=== PATIENT | female | born 1955 | race Caucasian/White ===

== ENCOUNTER 2017-09-10 19:17 | Emergency (ER) | payer OTHER ==
[2017-09-10 20:59] LABS: Urine Blood 1+ (NEG); Urine Glucose NEGATIVE (NEG); Urine Protein 1+ (NEG); Urine Specific Gravity 1.025 (1.005-1.030); Urine pH 5.5 (5.0-7.0)
[2017-09-10] MEDS ORDERED: CYCLOBENZAPRINE 10 MG TAB ONE (21:03)
[2017-09-10] MEDS ORDERED: IBUPROFEN 400 MG TAB ONE (21:03)
--- NOTE | 2017-09-10 21:32 | RAD REPORT ---
EXAM DESCRIPTION: RAD - Hand Right 3 View - 09/10/2017 9:21 pm CLINICAL HISTORY: Right hand pain status post injury FINDINGS: No fracture or dislocation is seen. 7 millimeter lucency is present within the metacarpal neck. It is uncertain if this is a true lesion or superimposition of trabecula in osteoporotic bones. A followup x-ray in 3 months of the fifth fin debbie is recommended for re-evaluation
[2017-09-10 21:39] LABS: Absolute Lymphocytes (CBC) 3.4 K/uL (0.7-4.9); Absolute Monocytes 0.6 K/uL (0.1-1.3); Absolute Neutrophil 6.2 K/uL (1.8-8.0); Basophils % 0.5 % (0-1.3); Eosinophils % 2.1 % (0-4.4); Hematocrit 39.8 % (36.0-45.0); Lymphocytes % 32.5 % (15.3-44.8); MCV 83.6 fL (80-100); MPV 9.2 fL (7.6-11.3); Monocytes % 5.7 % (3.3-12.3); RBC Red Blood Cell Count 4.76 M/uL (3.86-4.86)
[2017-09-10 21:48] LABS: Potassium 3.7 mEq/L (3.6-5.0)
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
== END 2017-09-10 23:45 | disposition home or self-care (01) ==
LOC: ER 19:17
DX: M62.830 Muscle spasm of back (principal); N39.0 Urinary tract infection, site not specified; M79.644 Pain in right finger(s); V49.49XA Driver injured in collision with other motor vehicles in traffic accident, initial encounter
CPT/HCPCS: 36415; 70450; 71260; 72125; 74177; 80048; 81003; 85025; 99285; Q9967

== ENCOUNTER 2020-10-19 10:57 | Emergency (ER) | payer OTHER ==
--- NOTE | 2020-10-19 12:08 | RAD REPORT ---
EXAM DESCRIPTION: RAD - Chest Single View - 10/19/2020 11:59 am CLINICAL HISTORY: COUGH, hypotension, weakness COMPARISON: None TECHNIQUE: AP portable chest image was obtained 10/19/2020 11:59 am . FINDINGS: Lung volumes are low. No acute lung parenchymal process. Left-sided pericardial fat presen t. Hilar granulomatous type calcifications are seen. Heart and vasculature are normal. No measurable pleural effusion and no pneumothorax. No acute bony abnormality seen. No acute aortic findings suspec ayaan. IMPRESSION: No acute cardiopulmonary process.
[2020-10-19 12:24] LABS: Basophils % 0.4 % (0-1.3); Hematocrit 30.2 % (36.0-45.0); Lymphocytes % 18.5 % (15.3-44.8); MPV 8.6 fL (7.6-11.3); Protime INR 1.4; RBC Red Blood Cell Count 3.76 M/uL (3.86-4.86)
[2020-10-19 12:49] LABS: ALT/SGPT 279 U/L (12-78); Albumin 1.7 g/dL (3.4-5.0); Alkaline Phosphatase 155 U/L (45-117); BUN Blood Urea Nitrogen 12 mg/dL (7-18); Bicarbonate 30 mmol/L (21-32); Bilirubin Direct 0.1 mg/dL (0-0.2); Bilirubin Total 0.4 mg/dL (0.2-1.0); Glucose Level 108 mg/dL (74-106); Lipase 51 U/L (73-393); Magnesium 2.2 mg/dL (1.8-2.4); NT PRO-BNP 205 pg/mL (<125); Potassium 3.1 mmol/L (3.5-5.1); Protein, Total 5.7 g/dL (6.4-8.2); Sodium Level 127 mmol/L (136-145); Troponin (Emerg Dept Use Only) < 0.02 ng/mL (0.0-0.045)
[2020-10-19 12:50] LABS: AST/SGOT 397 U/L (15-37)
[2020-10-19] MEDS ORDERED: FAMOTIDINE 20 MG/2 ML VIAL IV ONE (12:59)
[2020-10-19] MEDS ORDERED: NA CHLORIDE 0.9% 500 ML ONE (12:59)
[2020-10-19] MEDS ORDERED: CIPROFLOXACIN 400mg IV 400 MG/200 ML BAG IV ONE (12:59)
[2020-10-19] MEDS ORDERED: NA CHLORIDE 0.9% 1,000 ML ONE ×2 (13:00→14:16)
[2020-10-19] MEDS ORDERED: METRONIDAZOLE 500mg IVPB 500 MG/100 ML BAG IV ONE (13:00)
[2020-10-19 13:02] LABS: Anisocytosis 1+; Blood Morphology Comment NOTED (NOT SEEN); Platelet Estimate DECR
--- NOTE | 2020-10-19 13:06 | RAD REPORT ---
EXAM DESCRIPTION: CT - Abdomen Pelvis W Contrast - 10/19/2020 12:12 pm CLINICAL HISTORY: Abdominal distention;Abd pain COMPARISON: Head C Spine Cap W Con dated 09/10/2017 TECHNIQUE: Biphasic, helical CT imaging of the abdomen and pelvis was performed following 100 ml non -ionic IV contrast. No oral contrast. All CT scans are performed using dose optimization technique as appropriate and may include automated exposure control or mA/KV adjustment according to patient size. FINDINGS: No suspicious findings in the lung bases. Liver shows fatty infiltration that has progressed since 2018. Subtle nodularity of the liver capsule seen. Density of contrast in the main portal vein on venous phase imaging is less than expected. SMV and splenic vein appear to have normal density of contrast. The diminished density in the portal vei n may be an artifact of image acquisition timing. Thrombus within the portal vein is not entirely exc luded. There is a small 7 mm focus of diminished attenuation in the IVC near the liver. No similar fi nding in 2009. Pancreatic atrophy is present with no acute pancreatic parenchymal or peripancreatic abnormality. No splenomegaly or focal splenic finding. Gallbladder is contracted around multiple gallstones. Symmetric renal function is seen with no hydronephrosis or suspicious renal mass. No pyelonephritis o r acute parenchymal process. No bladder abnormalities. No adrenal abnormalities. Uterus and ovaries s how no suspicious findings for age. No stomach or small bowel acute finding. The appendix is not clearly defined. Appendix is not clearly visible in 2018. Free fluid near the tip of the cecum is present but acute appendicitis is not suspe cted. Moderate stool volume is present filling the cecum and proximal portion of the ascending colon. Remainder of the colon is decompressed. There is circumferential wall thickening that extends from m id ascending colon to the distal rectum. Mild to moderate sigmoid diverticulosis is present. A colon mass is not identified. No free air or pneumatosis. No hernia, mass or bulky lymphadenopathy. Air density in the subcutaneo us fat is presumed to be subcu heparin or other injection artifact. Degenerative bone changes are present. No acute or pathologic bone process seen. IMPRESSION: [id number]-[id number] colitis extending from mid ascending colon through the rectum. No mass or surgically emergent finding identifiable. Liver shows a new fatty infiltration pattern since 2018 with a subtle nodularity of the capsule that could indicate diffuse hepatic parenchymal disease. Diminished density within the portal vein raises possibility of portal vein thrombus. A dedicated [facility] ultrasound focused on the portal vein would be recommended. Small focus of thrombus is present in the IVC near the liver.
--- NOTE | 2020-10-19 13:23 | ER ---
Nurse's Notes [facility] Name: Raquel Zuleta Age: 65 yrs Sex: Female : 1955 Arrival Date: 10/19/2020 Time: 11:01 Bed 8 Private MD: Diagnosis: Anemia, unspecified;Abdominal tenderness;Fatty (change of) liver, not elsewhere classified;Unspecified cirrhosis of liver;Left sided colitis with other complication-BLEEDING;Gastrointestinal hemorrhage, unspecified-LOWER;Hypokalemia;Portal vein thrombosis-PARTIAL Presentation: 10/19 11:14 Chief complaint: Patient states: Dizzy, low BP, dehydration, weakness for over 3 weeks. ll1 Bloody diarrhea being treated by Dr. Lee. Dehydration for 2.5 weeks. No fever. Coronavirus screen: Client denies travel out of the [place] in the last 14 days. At this time, the client does not indicate any symptoms associated with coronavirus-19. Ebola Screen: Patient denies travel to an Ebola-affected area in the 21 days before illness onset. Initial Sepsis Screen: Does the patient meet any 2 criteria? HR > 90 bpm. No. Patient's initial sepsis screen is negative. Does the patient have a suspected source of infection? Yes: Skin breakdown/wound. Risk Assessment: Do you want to hurt yourself or someone else? Patient reports no desire to harm self or others. Onset of symptoms was September 20, 2099. 11:14 Method Of Arrival: Wheelchair ll1 11:14 Acuity: DARLENE 3 ll1 Triage Assessment: 11:30 General: Appears in no apparent distress. uncomfortable, obese, Behavior is bp cooperative, appropriate for age, anxious. Pain: Denies pain. EENT: No deficits noted. Neuro: Level of Consciousness is awake, alert, obeys commands, Oriented to person, place, time, situation, Appropriate for age. Cardiovascular: Rhythm is sinus tachycardia. Respiratory: No deficits noted. GI: Reports rectal bleeding. : No signs and/or symptoms were reported regarding the genitourinary system. Derm: No deficits noted. Musculoskeletal: No deficits noted. Historical: - Allergies: 11:17 No Known Allergies; ll1 - PMHx: 11:17 MS; pre diabetes; ll1 - PSHx: 11:17 Catartact repair; ll1 - Immunization history:: Client reports receiving the 2nd dose of the Covid vaccine, Flu vaccine is up to date. - Social history:: Smoking status: Patient denies any tobacco usage or history of. - Family history:: not pertinent. - Hospitalizations: : No recent hospitalization is reported. Screenin:30 Abuse screen: Denies threats or abuse. Denies injuries from another. Nutritional bp screening: No deficits noted. Tuberculosis screening: No symptoms or risk factors identified. Fall Risk None identified. Assessment: 11:30 Reassessment: SEE TRIAGE NOTE. bp 12:15 Reassessment: Patient appears in no apparent distress at this time. No changes from bp previously documented assessment. PT RETURNED FROM CT. 13:00 Reassessment: No changes from previously documented assessment. Patient and/or family bp updated on plan of care and expected duration. Pain level reassessed. Patient is alert, oriented x 3, equal unlabored respirations, skin warm/dry/pink. IVF AND ABX INFUSING. 15:00 Reassessment: REPORT TO BARBY JACOB FOR [facility]. bp 15:54 Reassessment: EMS AT B/S. bp Vital Signs: 11:14 BP 110 / 76; Pulse 101; Resp 17; Temp 98.4; Pulse Ox 100% ; Weight 104.33 kg; Height 5 ll1 ft. 6 in. (167.64 cm); Pain 8/10; 12:00 BP 116 / 73; Pulse 91; Resp 19; Pulse Ox 100% ; bp 13:00 BP 104 / 64; Pulse 90; Resp 17; Pulse Ox 100% ; bp 14:04 BP 112 / 79; Pulse 89; Resp 21; Pulse Ox 100% ; bp 15:00 BP 122 / 74; Pulse 78; Resp 17; Pulse Ox 100% ; bp 15:55 BP 115 / 79; Pulse 84; Resp 17; Temp 98.5; Pulse Ox 99% ; bp 11:14 Body Mass Index 37.12 (104.33 kg, 167.64 cm) ll1 ED Course: 11:01 Patient arrived in ED. am4 11:16 Triage completed. ll1 11:17 Arm band placed on Patient placed in an exam room, on a stretcher. ll1 11:24 Ramón Newman MD is Attending Physician. [facility] 11:25 Miguel Jama, RN is Primary Nurse. bp 11:30 Patient has correct armband on for positive identification. Bed in low position. Call bp light in reach. Side rails up X2. Adult w/ patient. 11:59 XRAY Chest (1 view) In Process Unspecified. EDMS 12:05 Inserted saline lock: 20 gauge in right antecubital area, using aseptic technique. bp Blood collected. 12:12 CT Abd/Pelvis - IV Contrast Only In Process Unspecified. EDMS 12:18 EKG done, by ED staff, reviewed by Ramón Newman MD. dh3 12:53 NT PRO-BNP Sent. bp 12:53 Magnesium Sent. bp 12:53 LFT's Sent. bp 12:53 CBC with Diff Sent. bp 12:53 Basic Metabolic Panel Sent. bp 13:26 initiated a transfer with Willem Capps Rn from the [facility]. eb 13:33 AMMONIA Sent. dh3 13:[address] Carrillo the hospitalist occupational safety specialist for [facility] with Dr. Trent neri for patient transfer consultation. 14:17 administrative approval given by Tish Capps Rn from the [facility]/ eb patient has been accepted to [facility] A509/ Dr. Amy Carrillo has accepted the patient in transfer. Report to be called to [phone]. 15:54 No provider procedures requiring assistance completed. Patient transferred, IV remains bp in place. Administered Medications: Discontinued: NS 0.9% 1000 ml IV at 125 ml/hr continuous 12:00 Drug: Pepcid (famotidine) 20 mg Route: IVP; Site: right antecubital; bp 13:51 Follow up: Response: No adverse reaction bp 12:00 Drug: Flagyl (metroNIDAZOLE) 500 mg Volume: 100 ml; Route: IVPB; Rate: 200 ml/hr; bp Infused Over: 30 mins; Site: right antecubital; 14:03 Follow up: IV Status: Completed infusion; IV Intake: 100ml bp 12:00 Drug: NS 0.9% 500 ml Route: IV; Rate: bolus; Site: right antecubital; bp 14:04 Follow up: IV Status: Completed infusion; IV Intake: 500ml bp 12:00 Drug: NS 0.9% 1000 ml Route: IV; Rate: 125 ml/hr; Site: right antecubital; bp 13:45 Drug: NS 0.9% with KCl 20 mEq/L 1000 ml Route: IV; Rate: 125 ml/hr; Site: right bp antecubital; 15:44 Follow up: IV Status: Infusion continued upon transfer bp 13:45 Drug: NS 0.9% 1000 ml Route: IV; Rate: 1 bolus; Site: right antecubital; bp 15:44 Follow up: IV Status: Completed infusion; IV Intake: 1000ml bp 13:50 Drug: Cipro (ciprofloxacin) 400 mg Volume: 200 ml; Route: IVPB; Infused Over: 60 mins; bp Site: right antecubital; 15:51 Follow up: IV Status: Completed infusion; IV Intake: 200ml bp 15:45 Drug: Potassium Effervescent Tablet 25 mEq Route: PO; bp 15:50 Follow up: Response: No adverse reaction bp 15:45 Drug: Zofran (Ondansetron) 4 mg Route: IVP; Site: right antecubital; bp 15:50 Follow up: Response: Nausea is decreased bp Intake: 14:03 IV: 100ml; Total: 100ml. bp 14:04 IV: 500ml; Total: 600ml. bp 15:44 IV: 1000ml; Total: 1600ml. bp 15:51 IV: 200ml; Total: 1800ml. bp Outcome: 13:23 ER care complete, transfer ordered by MD. valencia 15:56 Transferred by [facility] to [facility], Transfer form completed. bp 15:56 Condition: stable 15:56 Instructed on the need for transfer. 15:56 Patient left the ED. bp Signatures: Dispatcher [employer] EDMS Ramón Newman MD MD cha Herrera, Sharon 3 Miguel Jama, RN RN bp Minal Basurto Lynsay, RN RN 1 Abena Mata
--- NOTE | 2020-10-19 13:24 | EDPHYS ---
Physician Documentation [facility] Name: Raquel Zuleta Age: 65 yrs Sex: Female : 1955 Arrival Date: 10/19/2020 Time: 11:01 Bed 8 Private MD: TIFFANI Physician Ramón Newman HPI: 10/19 11:44 This 65 yrs old Female presents to ER via Wheelchair with complaints of annie Dizziness, Rectal Bleeding, Decreased Appetite. 11:44 The patient presents with dizziness, feeling faint, generalized weakness, annie lightheadedness. Onset: The symptoms/episode began/occurred 3 day(s) ago. Context: occurred. Modifying factors: The symptoms are alleviated by nothing, the symptoms are aggravated by nothing. Associated signs and symptoms: The patient has no apparent associated signs or symptoms. Severity of symptoms: At their worst the symptoms were mild moderate in the emergency department the symptoms are unchanged. Patient's baseline: Neuro:. The patient has not experienced similar symptoms in the past. Historical: - Allergies: 11:17 No Known Allergies; ll1 - PMHx: 11:17 MS; pre diabetes; ll1 - PSHx: 11:17 Catartact repair; ll1 - Immunization history:: Client reports receiving the 2nd dose of the Covid vaccine, Flu vaccine is up to date. - Social history:: Smoking status: Patient denies any tobacco usage or history of. - Family history:: not pertinent. - Hospitalizations: : No recent hospitalization is reported. ROS: 11:44 Constitutional: Negative for fever, chills, and weight loss, Eyes: Negative for injury, annie pain, redness, and discharge, ENT: Negative for injury, pain, and discharge, Neck: Negative for injury, pain, and swelling, Cardiovascular: Negative for chest pain, palpitations, and edema, Respiratory: Negative for shortness of breath, cough, wheezing, and pleuritic chest pain, Back: Negative for injury and pain, : Negative for injury, bleeding, discharge, and swelling, MS/Extremity: Negative for injury and deformity, Neuro: Negative for headache, weakness, numbness, tingling, and seizure, Psych: Negative for depression, anxiety, suicide ideation, homicidal ideation, and hallucinations, Allergy/Immunology: Negative for hives, rash, and allergies, Endocrine: Negative for neck swelling, polydipsia, polyuria, polyphagia, and marked weight changes, Hematologic/Lymphatic: Negative for swollen nodes, abnormal bleeding, and unusual bruising. 11:44 Abdomen/GI: Positive for abdominal pain, abdominal cramps, abdominal distension, rectal bleeding. Exam: 11:44 Constitutional: This is a well developed, well nourished patient who is awake, alert, annie and in no acute distress. Head/Face: Normocephalic, atraumatic. ENT: Nares patent. No nasal discharge, no septal abnormalities noted. Tympanic membranes are normal and external auditory canals are clear. Oropharynx with no redness, swelling, or masses, exudates, or evidence of obstruction, uvula midline. Mucous membranes moist. Neck: Trachea midline, no thyromegaly or masses palpated, and no cervical lymphadenopathy. Supple, full range of motion without nuchal rigidity, or vertebral point tenderness. No Meningismus. Chest/axilla: Normal chest wall appearance and motion. Nontender with no deformity. No lesions are appreciated. Cardiovascular: Regular rate and rhythm with a normal S1 and S2. No gallops, murmurs, or rubs. Normal PMI, no JVD. No pulse deficits. Respiratory: Lungs have equal breath sounds bilaterally, clear to auscultation and percussion. No rales, rhonchi or wheezes noted. No increased work of breathing, no retractions or nasal flaring. Back: No spinal tenderness. No costovertebral tenderness. Full range of motion. Female : Normal external genitalia. MS/ Extremity: Pulses equal, no cyanosis. Neurovascular intact. Full, normal range of motion. Neuro: Awake and alert, GCS 15, oriented to person, place, time, and situation. Cranial nerves II-XII grossly intact. Motor strength 5/5 in all extremities. Sensory grossly intact. Cerebellar exam normal. Normal gait. Psych: Awake, alert, with orientation to person, place and time. Behavior, mood, and affect are within normal limits. 11:44 Eyes: Conjunctiva: pale. 11:44 Cardiovascular: Rate: tachycardic, Rhythm: regular, Pulses: no pulse deficits are appreciated, Heart sounds: normal, normal S1and S2, no S3 or S4, no murmur, no rub, no gallop, Edema: is not appreciated, JVD: is not appreciated. 12:34 ECG was reviewed by the Attending Physician. annie 13:23 Abdomen/GI: Inspection: distension, Bowel sounds: normal, Palpation: moderate abdominal annie tenderness, in the left upper quadrant and left lower quadrant, Rectal exam: rectal tone normal, Stool: guaiac positive, hemorrhoid(s), are not appreciated, mass, is not appreciated, swelling, is not appreciated, tenderness, is not appreciated, fecal impaction, is not appreciated, Liver: no appreciated palpable abnormalities, Hernia: not appreciated. Vital Signs: 11:14 BP 110 / 76; Pulse 101; Resp 17; Temp 98.4; Pulse Ox 100% ; Weight 104.33 kg; Height 5 ll1 ft. 6 in. (167.64 cm); Pain 8/10; 12:00 BP 116 / 73; Pulse 91; Resp 19; Pulse Ox 100% ; bp 13:00 BP 104 / 64; Pulse 90; Resp 17; Pulse Ox 100% ; bp 14:04 BP 112 / 79; Pulse 89; Resp 21; Pulse Ox 100% ; bp 15:00 BP 122 / 74; Pulse 78; Resp 17; Pulse Ox 100% ; bp 15:55 BP 115 / 79; Pulse 84; Resp 17; Temp 98.5; Pulse Ox 99% ; bp 11:14 Body Mass Index 37.12 (104.33 kg, 167.64 cm) ll1 MDM: 11:24 Patient medically screened. annie 11:48 Differential diagnosis: cardiac arrhythmia, generalized weakness, GI bleed, annie hypovolemia, near-syncope. Data reviewed: vital signs, nurses notes, lab test result(s), EKG, radiologic studies. Data interpreted: panel monitor: rate is 101 beats/min, rhythm is regular, Pulse oximetry: on room air is 100 %. Test interpretation: by ED physician or midlevel provider: ECG, plain radiologic studies. Counseling: I had a detailed discussion with the patient and/or guardian regarding: the historical points, exam findings, and any diagnostic results supporting the discharge/admit diagnosis, lab results, radiology results. 10/19 11:44 Order name: Basic Metabolic Panel [facility] 10/19 11:44 Order name: CBC with Diff annie 10/19 11:44 Order name: LFT's [facility] 10/19 11:44 Order name: Magnesium [facility] 10/19 11:44 Order name: NT PRO-BNP [facility] 10/19 11:44 Order name: PT-INR; Complete Time: 13:15 [facility] 10/19 11:44 Order name: Troponin (emerg Dept Use Only); Complete Time: 13:15 [facility] 10/19 11:44 Order name: Lipase; Complete Time: 13:15 [facility] 10/19 11:44 Order name: Type And Screen; Complete Time: 13:39 [facility] 10/19 11:44 Order name: Basic Metabolic Panel; Complete Time: 13:15 [facility] 10/19 11:44 Order name: CBC with Automated Diff; Complete Time: 13:15 [facility] 10/19 11:44 Order name: Liver (Hepatic) Function; Complete Time: 13:15 [facility] 10/19 11:44 Order name: Magnesium; Complete Time: 13:15 [facility] 10/19 11:44 Order name: XRAY Chest (1 view); Complete Time: 12:29 [facility] 10/19 11:44 Order name: CT Abd/Pelvis - IV Contrast Only; Complete Time: 13:15 [facility] 10/19 11:44 Order name: NT PRO-BNP; Complete Time: 13:15 [facility] 10/19 13:02 Order name: Manual Differential; Complete Time: 13:15 [facility] 10/19 13:18 Order name: AMMONIA; Complete Time: 15:09 [facility] 10/19 13:25 Order name: ABO/RH no charge; Complete Time: 13:39 [facility] 10/19 13:32 Order name: SARS-COV-2 RT PCR; Complete Time: 13:39 [facility] 10/19 15:49 Order name: LAB Add On eb 10/19 11:44 Order name: EKG; Complete Time: 11:45 [facility] 10/19 11:44 Order name: Cardiac monitoring; Complete Time: 12:22 [facility] 10/19 11:44 Order name: EKG - Nurse/Tech; Complete Time: 12:22 [facility] 10/19 11:44 Order name: IV Saline Lock; Complete Time: 12:22 [facility] 10/19 11:44 Order name: Labs collected and sent; Complete Time: 12:22 [facility] 10/19 11:44 Order name: O2 Per Protocol; Complete Time: 12:22 [facility] 10/19 11:44 Order name: O2 Sat Monitoring; Complete Time: 12:22 [facility] 10/19 13:45 Order name: IV Saline Lock - Large Bore; Complete Time: 13:51 annie EC:34 Rate is 91 beats/min. Rhythm is regular. QRS [place] is Normal. NV interval is normal. QRS annie interval is normal. QT interval is normal. No Q waves. T waves are Normal. No ST changes noted. Clinical impression: NSR w/ Non-specific ST/T Changes and No evidence of ischemia. Interpreted by me. Reviewed by me. Administered Medications: Discontinued: NS 0.9% 1000 ml IV at 125 ml/hr continuous 12:00 Drug: Pepcid (famotidine) 20 mg Route: IVP; Site: right antecubital; bp 13:51 Follow up: Response: No adverse reaction bp 12:00 Drug: Flagyl (metroNIDAZOLE) 500 mg Volume: 100 ml; Route: IVPB; Rate: 200 ml/hr; bp Infused Over: 30 mins; Site: right antecubital; 14:03 Follow up: IV Status: Completed infusion; IV Intake: 100ml bp 12:00 Drug: NS 0.9% 500 ml Route: IV; Rate: bolus; Site: right antecubital; bp 14:04 Follow up: IV Status: Completed infusion; IV Intake: 500ml bp 12:00 Drug: NS 0.9% 1000 ml Route: IV; Rate: 125 ml/hr; Site: right antecubital; bp 13:45 Drug: NS 0.9% with KCl 20 mEq/L 1000 ml Route: IV; Rate: 125 ml/hr; Site: right bp antecubital; 15:44 Follow up: IV Status: Infusion continued upon transfer bp 13:45 Drug: NS 0.9% 1000 ml Route: IV; Rate: 1 bolus; Site: right antecubital; bp 15:44 Follow up: IV Status: Completed infusion; IV Intake: 1000ml bp 13:50 Drug: Cipro (ciprofloxacin) 400 mg Volume: 200 ml; Route: IVPB; Infused Over: 60 mins; bp Site: right antecubital; 15:51 Follow up: IV Status: Completed infusion; IV Intake: 200ml bp 15:45 Drug: Potassium Effervescent Tablet 25 mEq Route: PO; bp 15:50 Follow up: Response: No adverse reaction bp 15:45 Drug: Zofran (Ondansetron) 4 mg Route: IVP; Site: right antecubital; bp 15:50 Follow up: Response: Nausea is decreased bp Disposition: 10/19/20 13:23 Transfer ordered to [facility]. Diagnosis are Anemia, unspecified, Abdominal tenderness, Fatty (change of) liver, not elsewhere classified, Unspecified cirrhosis of liver, Left sided colitis with other complication - BLEEDING, Gastrointestinal hemorrhage, unspecified - LOWER, Hypokalemia, Portal vein thrombosis - PARTIAL. - Reason for transfer: Higher level of care. - Accepting physician is TO [facility], [place] , TELE, MEDICINE /GI . - Condition is Fair. - Problem is new. - Symptoms have improved. Signatures: Dispatcher [employer] EDPR Ramón Newman MD MD cha Peltier, Brian RN RN bp Gerry Alcocer RN RN ll1 Corrections: (The following items were deleted from the chart) 12:48 11:45 CORONAVIRUS+ ordered. [facility] 15:12 13:23 10/19/2020 13:23 Transfer ordered to [facility]. annie Diagnosis is Anemia, unspecified; Abdominal tenderness; Fatty (change of) liver, not elsewhere classified; Unspecified cirrhosis of liver; Left sided colitis with other complication - BLEEDING; Gastrointestinal hemorrhage, unspecified - LOWER; Hypokalemia. Reason for transfer: Higher level of care. Accepting physician is TO [facility], MEDICINE /GI . Condition is Fair. Problem is new. Symptoms have improved. annie 15:13 15:12 10/19/2020 13:23 Transfer ordered to [facility]. annie Diagnosis is Anemia, unspecified; Abdominal tenderness; Fatty (change of) liver, not elsewhere classified; Unspecified cirrhosis of liver; Left sided colitis with other complication - BLEEDING; Gastrointestinal hemorrhage, unspecified - LOWER; Hypokalemia; Portal vein thrombosis - PARTIAL. Reason for transfer: Higher level of care. Accepting physician is TO [facility], MEDICINE /GI . Condition is Fair. Problem is new. Symptoms have improved. annie 15:56 15:13 10/19/2020 13:23 Transfer ordered to [facility]. bp Diagnosis is Anemia, unspecified; Abdominal tenderness; Fatty (change of) liver, not elsewhere classified; Unspecified cirrhosis of liver; Left sided colitis with other complication - BLEEDING; Gastrointestinal hemorrhage, unspecified - LOWER; Hypokalemia; Portal vein thrombosis - PARTIAL. Reason for transfer: Higher level of care. Accepting physician is TO [facility], [place] , TELE, MEDICINE /GI . Condition is Fair. Problem is new. Symptoms have improved. annie
[2020-10-19] MEDS ORDERED: NS KCL 20MEQ 1,000 ML IV ONE (14:16)
[2020-10-19] MEDS ORDERED: ONDANSETRON 4 MG/2 ML VIAL ONE (16:08)
[2020-10-19] MEDS ORDERED: POTASSIUM 25 MEQ EFFERV TAB ONE (16:09)
[2020-10-19 16:12] VITALS: BP 115/79; TEMP 98.5; O2SAT 99
--- NOTE | 2020-10-22 12:06 | EKG ---
Test Date: 2020-10-19 Test Time: 12:18:11 Director Of Recruitment And Admissions: CHRIS MEASUREMENT RESULTS: Intervals: Rate: 91 KS: 154 QRSD: 96 QT: 368 QTc: 452 [place]: P: 62 KS: 154 QRS: 55 T: 54 INTERPRETIVE STATEMENTS: Sinus rhythm with marked sinus arrhythmia Nonspecific T wave abnormality Abnormal ECG No previous ECG available for comparison Electronically Signed On 10-22-20 11:55:12 CDT by Rao Farrar
== END 2020-10-19 15:56 | disposition short-term general hospital (02) ==
LOC: ER 10:57
DX: D64.9 Anemia, unspecified (principal); K51.511 Left sided colitis with rectal bleeding; E87.6 Hypokalemia; I81 Portal vein thrombosis; K74.60 Unspecified cirrhosis of liver; K76.0 Fatty (change of) liver, not elsewhere classified; R10.819 Abdominal tenderness, unspecified site; Z20.822 Contact with and (suspected) exposure to COVID-19
CPT/HCPCS: 96365; 93005; 85025; 80048; 36415; 80320; 82140; 86900; 83735; 86850; 85610; 82565; 86901; 80076; 84484; 83690; 83880; 74177; 71045; 96375; 99285; 96366; U0003; Q9967; J7040; J7030 ×2; J2405; J0744; J3480